=== PATIENT | female | born 1990 | race Caucasian/White ===

== ENCOUNTER 2024-07-08 21:03 | Emergency (ER) | payer MEDICAID, OTHER ==
[~2024-07-08] VITALS: Ht 170.2 cm; Wt 99.0 kg
[2024-07-08 21:14] VITALS: O2SAT 97
[2024-07-09 00:04] LABS: BASOPHILS % 0.8 % (0.0-2.0); EOSINOPHILS % 7.6 % (0.0-5.0); HEMATOCRIT. 42.6 % (36.0-48.0); HEMOGLOBIN. 13.8 g/dL (12.0-16.0); MEAN CORPUSCULAR HEMOGLOBIN 28.3 pg (28.0-32.0); MEAN CORPUSCULAR HGB CONC 32.3 g/dL (31.0-37.0); MEAN CORPUSCULAR VOLUME 87.6 fL (81.0-99.0); MEAN PLATELET VOLUME 10.7 fl (7.4-10.4); NEUTROPHILS % 62.6 % (40.0-76.0); PLATELET 189 x1000/uL (130-400); RED BLOOD CELL COUNT 4.86 mill/uL (4.2-5.4)
[2024-07-09 00:06] LABS: CARBON DIOXIDE 30 mEq/L (21-32); CHLORIDE 104 mEq/L (98-107); SODIUM 140 mEq/L (136-145)
[2024-07-09 00:12] LABS: GLUCOSE 81 mg/dL (70-105); UREA NITROGEN BLOOD 10 mg/dL (9-23)
[2024-07-09 00:13] LABS: ACETAMINOPHEN < 2 ug/mL (10-30); ALANINE AMINOTRANSFERASE 20 IU/L (10-49); ASPARTATE AMINOTRANSFERASE 16 IU/L (<34)
[2024-07-09 00:14] LABS: BILIRUBIN TOTAL 0.3 mg/dL (0.1-1.0); PROTEIN TOTAL 7.6 g/dL (6.0-8.3)
[2024-07-09 00:24] LABS: BILIRUBIN DIRECT < 0.1 mg/dL (<=3.0); ETHANOL BLOOD < 10 mg/dL (<10)
[2024-07-09 01:18] LABS: HCG SCREEN NEGATIVE
[2024-07-09] MEDS ORDERED: DIPHENHYDRAMINE 50MG/ML VIAL IM PRN (02:45)
[2024-07-09] MEDS: LORAZEPAM 1MG TABLET PO NR (02:51)
[2024-07-09 12:57] VITALS: BP 115/69; PULSE 70; RESP 18; TEMP 36.6; O2SAT 99
== END 2024-07-09 12:41 | disposition home or self-care (01) ==
LOC: ER 21:03
DX: R45.851 Suicidal ideations (principal); F31.9 Bipolar disorder, unspecified; F19.10 Other psychoactive substance abuse, uncomplicated; Z59.02 Unsheltered homelessness; Z91.148 Patient's other noncompliance with medication regimen for other reason; Z79.899 Other long term (current) drug therapy
CPT/HCPCS: 36415; 80048; 80076; 80307; 80320; 80329; 84703; 85025; 99285; G0480

== ENCOUNTER 2024-07-23 11:42 | Emergency (ER) | payer OTHER ==
[~2024-07-23] VITALS: Ht 177.8 cm; Wt 127.0 kg
[2024-07-23 11:43] VITALS: O2SAT 98
[2024-07-23 12:01] VITALS: BP 167/97; PULSE 93; RESP 18; TEMP 36.9; O2SAT 96
== END 2024-07-23 13:15 | disposition home or self-care (01) ==
LOC: ER 11:42
DX: Z00.8 Encounter for other general examination (principal); Z59.02 Unsheltered homelessness; F12.90 Cannabis use, unspecified, uncomplicated; F32.A Depression, unspecified; F17.200 Nicotine dependence, unspecified, uncomplicated
CPT/HCPCS: 99281